=== PATIENT | female | born 1965 ===

== ENCOUNTER → 2024-07-31 | Day surgery (SDC) | payer SELFPAY ==
[~2024-07-31] MED LIST: Lidocaine 1% 5 ML VIAL ONE; Ondansetron 4 MG/2 ML SDV IVPUSH PRN; Propofol 200 MG/20 ML SDV ONE; Sodium Chloride 0.9% 10 ML Syringe FLUSH PRN; Sodium Chloride 0.9% 10 ML Syringe FLUSH SCH
[2024-07-31] MEDS: Lactated Ringers 1,000 ML IV SCH (08:30)
== END | disposition home or self-care (01) ==
LOC: JD.SDS 07:00
PROVIDERS: ATTEND Surgery
DX: K51.214 Ulcerative (chronic) proctitis with abscess (principal); K62.89 Other specified diseases of anus and rectum; K62.5 Hemorrhage of anus and rectum; K51.90 Ulcerative colitis, unspecified, without complications; E03.9 Hypothyroidism, unspecified; Z88.2 Allergy status to sulfonamides; Z91.012 Allergy to eggs; Z79.899 Other long term (current) drug therapy
CPT/HCPCS: 00811; J2704; J3490; J7120